=== PATIENT | male | born 1995 | race Caucasian/White ===

== ENCOUNTER 2020-12-18 09:37 | Emergency (ER) | payer BC, OTHER ==
[2020-12-18 09:51] VITALS: BP 118/77; PULSE 69; TEMP 98.1; BMI 28.1
[2020-12-18] MEDS ORDERED: ACETAMINOPHEN 325 MG TABLET (FP) ONE (10:13)
[2020-12-18] MEDS ORDERED: ACETAMINOPHEN 325 MG TABLET (FP) PO ONE (10:13)
== END 2020-12-18 11:07 | disposition home or self-care (01) ==
LOC: JERFT 09:37
DX: S63.601A Unspecified sprain of right thumb, initial encounter (principal); S00.83XA Contusion of other part of head, initial encounter; S43.401A Unspecified sprain of right shoulder joint, initial encounter
CPT/HCPCS: 70150-TC-FY; 73140-TC-RT-FY; 99284-25